=== PATIENT | male | born 1950 | race Caucasian/White ===

== ENCOUNTER 2017-03-23 22:40 | Emergency (ER) | payer MEDICAID ==
[2017-03-24 00:39] LABS: BASOPHIL % 0.3 % (0-2); PLATELET COUNT 293 x10^3mcL (130-400)
[2017-03-24 00:40] LABS: RED CELL DISTRIBUTION WIDTH 15.3 % (11.5-14.5)
[2017-03-24 00:56] LABS: CALCIUM 9.8 mg/dL (8.5-10.1); CARBON DIOXIDE 23.2 mmol/L (21-32); POTASSIUM SERUM 4.8 mmol/L (3.5-5.1)
[2017-03-24 01:10] LABS: ALBUMIN 3.7 g/dL (3.4-5.0); BILIRUBIN TOTAL 0.6 mg/dL (0.20-1.00); TOTAL PROTEIN, SERUM 12.7 g/dL (6.4-8.2)
[2017-03-24 04:11] VITALS: BP 129/75
== END 2017-03-24 04:11 | disposition home or self-care (01) ==
LOC: ED 22:40
PROVIDERS: Emergency Medicine
DX: E86.0 Dehydration (principal); R10.13 Epigastric pain
CPT/HCPCS: 83880; 87046; 87046-59; J2405; J7030